=== PATIENT | male | born 1950 | race Caucasian/White ===

== ENCOUNTER 2018-07-31 05:51 | Day surgery (SDC) | payer MEDICARE ==
[~2018-07-31] VITALS: Ht 177.8 cm; Wt 104.3 kg
--- NOTE | ~2018-07-31 | OP ---
PATIENT NAME: JOSHUA COX MEDICAL RECORD: [id number] :46 LOCATION:[facility] ADMISSION DATE: SURGEON: YURY CLAROS DPM DATE OF OPERATION: 07/31/2018 PREOPERATIVE DIAGNOSES: 1. Calcaneal spur, left foot. 2. Achilles tendon disruption, left foot. POSTOPERATIVE DIAGNOSES: 1. Calcaneal spur, left foot. 2. Achilles tendon disruption, left foot. PROCEDURES: 1. Left gastroc recession. 2. Left calcaneal spur removal. 3. Achilles tendon repair, left foot. ANESTHESIA: Preoperative popliteal block per the anesthesia department as well as intraoperative general anesthesia. HEMOSTASIS: Left thigh tourniquet at 350 mmHg. PREOPERATIVE DETAILS: The patient was taken to the OR and following induction of general anesthesia, the patient was placed on the operating table in a prone position. The left extremity was then prepped and draped in the usual aseptic technique followed by exsanguination of extremity and inflation of tourniquet. PROCEDURE #1: Gastroc recession, left foot: A 15-blade was used to create a 3 cm linear incision over the posterior aspect of the gastroc aponeurosis. The incision was deepened down through subcutaneous tissue to the peritenon. A linear peritenon incision was made and the aponeurosis was freed. With the foot in dorsiflexion, a 15-blade was used to make a cut through the aponeurosis allowing adequate dorsiflexion of the ankle joint. The wound was flushed and the skin was closed with skin penelope. PROCEDURE #2: Calcaneal spur removal of posterior left foot: A 15-blade was used to create an incision on the posterior aspect of the left heel, just medial to the midline approximately 4 cm in length. The incision was deepened down through subcutaneous tissue to the peritenon of the Achilles tendon, freed from the Achilles tendon and the Achilles tendon was exposed. At this time, there was noted to be significant enlargement of the posterior calcaneus. A 15-blade was used to detach the Achilles tendon which was noted to be synovitic in some areas as well as inflamed bursa. Once it was detached. A sagittal saw was used to remove the spurring on the posterior aspect of the calcaneus. The rough areas were rasped smooth. Once excellent reduction of the calcaneal spurring was noted, the repair occurred. PROCEDURE #3: Achilles tendon repair, left foot: Utilizing the suture bridge technique, the Achilles tendon was repaired to the posterior aspect of the calcaneus with excellent rigid internal fixation utilizing 4 anchors. Once the tendon was repaired, the foot was placed in dorsiflexion noting excellent repair of the Achilles tendon. The wound was flushed. The peritenon was repaired with 2-0 Vicryl, the subcutaneous tissue with 4-0 Rapide, and the skin was closed with 4-0 Rapide in a subcuticular technique followed by Dermabond. Adaptic, 4 x OPERATIVE REPORT [id number] JOSHUA COX 4, and Conform were used to dress the wounds followed by application of a modified Renteria compression dressing. Tourniquet was deflated. POSTOPERATIVE DETAILS: The patient tolerated the procedure well and left the OR with vital signs stable and vascular status at preoperative levels. The patient was transported to recovery per anesthesia in stable condition. TRANSINT:[id number] Voice Confirmation ID: [id number] DOCUMENT ID: [id number] YURY CLAROS DPM CC: [id number] DICTATION DATE: 07/31/18 1007 SURVEILLANCE MONITOR: 07/31/18 1148 [facility] [address] [place] [address]
[2018-07-31 06:26] LABS: HEMATOCRIT 42.3 % (42.0-54.0); MCH 30.9 pg (26.0-34.0); MCHC 35.5 g/dL (31.0-37.0); MEAN PLATELET VOLUME 9.8 fL (7.4-10.4); RBC 4.86 10x6/uL (4.20-6.10); RDW 13.3 % (11.5-14.5); WBC 4.7 10x3/uL (4.8-10.8)
[2018-07-31 07:34] VITALS: BP 96/72; Ht 177.8 cm; Wt 104.3 kg
== END 2018-07-31 12:25 | disposition home or self-care (01) ==
LOC: D.OPS 05:51 → D.PAN 08:30 → D.OPS 08:45
PROVIDERS: Anesthesiology
DX: M77.32 Calcaneal spur, left foot (principal); S39.012A Strain of muscle, fascia and tendon of lower back, initial encounter; X58.XXXA Exposure to other specified factors, initial encounter